=== PATIENT | male | born 1970 | race Caucasian/White ===

== ENCOUNTER 2023-11-02 20:44 | Emergency (ER) | payer BC ==
[~2023-11-02] VITALS: Ht 185.4 cm; Wt 95.3 kg
[2023-11-02] MEDS ORDERED: PROZAC20 MG PO (21:01)
[2023-11-02] MEDS ORDERED: PROPRANOLOL HCL10 MG PO (21:01)
[2023-11-02] MEDS ORDERED: ZYPREXA2.5 MG PO (21:02)
[2023-11-02 21:58] LABS: BASO # 0.1 10*3/uL (0.0-0.1); BASO % 0.6 % (0.0-1.0); EOS # 0.1 10*3/uL (0.0-0.4); EOS % 1.2 % (1.0-4.0); HEMATOCRIT 45.8 % (42.0-52.0); LYMPH # 1.7 10*3/uL (1.3-4.4); LYMPH % 15.7 % (27.0-41.0); MEAN CELL VOLUME 88.9 fl (80.0-94.0); MEAN CORPUSCULAR HGB 29.9 pg (27.0-31.0); MEAN CORPUSCULAR HGB CONC 33.6 g/dl (33.0-37.0); MEAN PLATELET VOLUME 10.7 fl (9.6-12.3); MONO # 0.8 10*3/uL (0.1-1.0); MONO % 7.4 % (3.0-9.0); NEUT # 8.1 10*3/uL (2.3-7.9); NEUT % 74.8 % (47.0-73.0); PLATELET COUNT AUTOMATED 370 10*3/uL (130-400); RED BLOOD COUNT 5.15 10*6/uL (4.50-5.90); RED CELL DISTRI WIDTH 12.2 % (0-14.5); WHITE BLOOD COUNT 10.8 10*3/uL (4.8-10.8)
[2023-11-02 22:19] LABS: ALKALINE PHOSPHATASE 72 U/L (46-116); BUN 9 mg/dl (9-23); CHLORIDE 105 mmol/L (98-107); POTASSIUM 3.3 mmol/L (3.4-5.1); SGPT/ALT 7 U/L (5-49); TOTAL PROTEIN 7.7 gm/dL (6.0-8.0)
[2023-11-03] MEDS ORDERED: VIBRAMYCIN100 MG PO (00:49)
[2023-11-03] MEDS ORDERED: FLONASE ALLERG9.9 ML NAS (00:49)
[2023-11-03] MEDS ORDERED: PREDNISONE50 MG PO (00:49)
[2023-11-03] MEDS ORDERED: BENZONATATE100 M1 PO (00:50)
== END 2023-11-03 01:10 | disposition home or self-care (01) ==
LOC: ED 20:44
PROVIDERS: Family Medicine
DX: J32.9 Chronic sinusitis, unspecified (principal); R05.9 Cough, unspecified; R06.00 Dyspnea, unspecified; Z20.822 Contact with and (suspected) exposure to COVID-19

== ENCOUNTER → 2023-11-16 | Outpatient (CLI) | payer BC ==
[~2023-11-16] MED LIST: BENZONATATE100 M1 PO; FLONASE ALLERG9.9 ML NAS; PREDNISONE50 MG PO; PROPRANOLOL HCL10 MG PO; PROZAC20 MG PO; VIBRAMYCIN100 MG PO; ZYPREXA2.5 MG PO
== END | disposition home or self-care (01) ==
LOC: RAD 14:19
PROVIDERS: ATTEND Nurse Practitioner Family
DX: J18.9 Pneumonia, unspecified organism (principal); M47.814 Spondylosis without myelopathy or radiculopathy, thoracic region